=== PATIENT | female | born 1995 | race Two or more races ===

== ENCOUNTER 2020-06-20 21:29 | Emergency (ER) | payer MEDICAID ==
[~2020-06-20] VITALS: Ht 165.1 cm; Wt 166.8 kg
[2020-06-20 21:41] VITALS: BP 155/92
[2020-06-20] MEDS ORDERED: ondansetron 4mg rapidly disintigrating tab PO ONE (23:25)
[2020-06-20] MEDS ORDERED: HYDROcodone/acetaminophen 5mg/325mg tablet PO ONE (23:25)
[2020-06-20] MEDS ORDERED: amox tr/potassium clavulanate 875/125mg TAB PO ONE (23:25)
[2020-06-20] MEDS ORDERED: ONDA4TAB6 PO (23:27)
[2020-06-20] MEDS ORDERED: HYDR-3965 PO (23:27)
[2020-06-20] MEDS ORDERED: AMOX-117 PO (23:27)
== END 2020-06-20 23:54 | disposition home or self-care (01) ==
LOC: ER 21:30
DX: K04.7 Periapical abscess without sinus (principal); K08.89 Other specified disorders of teeth and supporting structures; R50.9 Fever, unspecified; Z88.1 Allergy status to other antibiotic agents; Z79.2 Long term (current) use of antibiotics; Z79.899 Other long term (current) drug therapy
CPT/HCPCS: 99284

== ENCOUNTER 2020-07-17 22:30 | Emergency (ER) | payer MEDICAID ==
[~2020-07-17] VITALS: Ht 165.1 cm; Wt 165.4 kg
[~2020-07-17 22:30] MED LIST: ONDA4TAB6 PO
[2020-07-17 22:38] VITALS: BP 151/87
[2020-07-18] MEDS ORDERED: ketorolac trometh. 30mg/ml inj. IV ONE (00:35)
[2020-07-18] MEDS ORDERED: HYDR-3964 PO (01:47)
[2020-07-18] MEDS ORDERED: ONDA4TAB6 PO (01:47)
== END 2020-07-18 02:33 | disposition home or self-care (01) ==
LOC: ER 22:31
DX: M54.5 Low back pain (principal); M53.3 Sacrococcygeal disorders, not elsewhere classified; Z79.2 Long term (current) use of antibiotics; Z79.899 Other long term (current) drug therapy
CPT/HCPCS: 72131; 72192; 96374; 99285; J1885

== ENCOUNTER 2020-10-28 00:36 | Emergency (ER) | payer MEDICAID ==
[~2020-10-28] VITALS: Ht 165.1 cm; Wt 163.6 kg
[2020-10-28 01:14] VITALS: BP 154/97
[2020-10-28] MEDS ORDERED: ALBU18HF2 INH (02:34)
[2020-10-28] MEDS ORDERED: PRED20TA PO (02:34)
[2020-10-28] MEDS ORDERED: DOXY100C43 PO (02:34)
== END 2020-10-28 03:44 | disposition home or self-care (01) ==
LOC: ER 00:36
DX: J20.9 Acute bronchitis, unspecified (principal); Z20.822 Contact with and (suspected) exposure to COVID-19; J45.909 Unspecified asthma, uncomplicated; Z88.1 Allergy status to other antibiotic agents; Z79.899 Other long term (current) drug therapy; Z72.89 Other problems related to lifestyle
CPT/HCPCS: 87635; 99283; C9803

== ENCOUNTER 2021-01-22 19:26 | Emergency (ER) | payer MEDICAID ==
[~2021-01-22] VITALS: Ht 165.1 cm; Wt 154.3 kg
[~2021-01-22 19:26] MED LIST changes: +ALBU18HF2 INH
[2021-01-22] MEDS ORDERED: NAPR-56 PO (21:45)
[2021-01-22] MEDS ORDERED: PENI250T2 PO (21:45)
[2021-01-22] MEDS ORDERED: HYDR-3965 PO (21:45)
[2021-01-22 22:13] VITALS: BP 120/65
== END 2021-01-22 22:14 | disposition home or self-care (01) ==
LOC: ER 19:27
DX: K08.89 Other specified disorders of teeth and supporting structures (principal); K02.9 Dental caries, unspecified; Z88.2 Allergy status to sulfonamides; Z79.2 Long term (current) use of antibiotics; Z79.899 Other long term (current) drug therapy
CPT/HCPCS: 99283

== ENCOUNTER 2021-02-07 12:33 | Emergency (ER) | payer MEDICAID ==
[~2021-02-07] VITALS: Ht 165.1 cm; Wt 172.7 kg
[~2021-02-07 12:33] MED LIST changes: +HYDR-3965 PO; +NAPR-56 PO
[2021-02-07 12:46] VITALS: BP 166/105
[2021-02-07 13:43] LABS: BASOPHILS % (AUTO) 0.5 % (0-1); EOSINOPHILS # (AUTO) 0.1 X10'3 (0-0.9); EOSINOPHILS % (AUTO) 0.7 % (0-6); HEMATOCRIT 40.5 % (35.0-45.0); HEMOGLOBIN 13.7 g/dl (12.0-16.0); LYMPHOCYTES % (AUTO) 10.4 % (21-51); MEAN CORPUSCULAR HEMOGLOBIN 30.9 PG (27.0-31.0); MEAN CORPUSCULAR VOLUME 90.9 FL (78-98); MEAN PLATELET VOLUME 8.5 FL (7.4-10.4); MONOCYTES # (AUTO) 0.2 X10'3 (0-0.9); MONOCYTES % (AUTO) 2.4 % (2-12); NEUTROPHILS # (AUTO) 8.2 X10'3 (1.8-7.7); PLATELET COUNT 212 X10'3 (140-440); RED BLOOD COUNT 4.45 X10'6 (4.20-5.60); RED CELL DISTRIBUTION WIDTH 14.9 % (11.5-14.5); WHITE BLOOD COUNT 9.5 X10'3 (4.5-11.0)
[2021-02-07 13:56] LABS: ALANINE AMINOTRANSFERASE 48 U/L (12-78); ALBUMIN 3.8 G/DL (3.4-5.0); ALBUMIN/GLOBULIN RATIO 0.9 (1.1-1.5); ALKALINE PHOSPHATASE 67 IU/L (46-116); ANION GAP 9 (8-16); ASPARTATE AMINO TRANSFERASE 20 U/L (10-37); BILIRUBIN,TOTAL 0.3 MG/DL (0.1-1.0); BLOOD UREA NITROGEN 11 MG/DL (7-18); BUN/CREATININE RATIO 13.4 (6.6-38.0); CALCIUM 8.9 MG/DL (8.5-10.1); CHLORIDE 103 MMOL/L (99-107); CREATININE 0.82 MG/DL (0.40-0.90); GLUCOSE 122 MG/DL (70-104); POTASSIUM 4.3 MMOL/L (3.5-5.1); SODIUM 140 MMOL/L (135-145); TOTAL PROTEIN 8.1 G/DL (6.4-8.2); eGFR 84 ML/MIN
[2021-02-07] MEDS ORDERED: PRED20TA PO (14:18)
[2021-02-07] MEDS ORDERED: BENZ-38 PO (14:18)
[2021-02-07] MEDS ORDERED: AMOX-117 PO (14:18)
[2021-02-07] MEDS ORDERED: ALBU6.7H9 INH (14:36)
== END 2021-02-07 14:37 | disposition home or self-care (01) ==
LOC: ER 12:34
DX: J20.9 Acute bronchitis, unspecified (principal); Z20.822 Contact with and (suspected) exposure to COVID-19; R50.9 Fever, unspecified; R53.1 Weakness; R06.02 Shortness of breath; R05.9 Cough, unspecified; E66.01 Morbid (severe) obesity due to excess calories; J45.909 Unspecified asthma, uncomplicated; F17.200 Nicotine dependence, unspecified, uncomplicated; Z88.1 Allergy status to other antibiotic agents; Z79.2 Long term (current) use of antibiotics; Z79.899 Other long term (current) drug therapy
CPT/HCPCS: 36415; 71045; 80053; 85025; 87635; 99284; C9803

== ENCOUNTER 2021-03-25 15:26 | Emergency (ER) | payer MEDICAID ==
[~2021-03-25] VITALS: Ht 165.1 cm; Wt 185.4 kg
[~2021-03-25 15:26] MED LIST changes: +ALBU6.7H9 INH; -HYDR-3965 PO; -NAPR-56 PO
[2021-03-25 15:46] VITALS: BP 142/95
[2021-03-25] MEDS ORDERED: OXYC-481 PO ×2 (16:01→16:08)
[2021-03-25] MEDS ORDERED: OXYC5CAP19 PO (16:05)
[2021-03-25] MEDS ORDERED: OXYC-658 PO (16:14)
== END 2021-03-25 16:36 | disposition home or self-care (01) ==
LOC: ER 15:27
DX: K08.89 Other specified disorders of teeth and supporting structures (principal); H92.03 Otalgia, bilateral; R53.83 Other fatigue; J45.909 Unspecified asthma, uncomplicated; Z88.1 Allergy status to other antibiotic agents; Z79.899 Other long term (current) drug therapy
CPT/HCPCS: 99283

== ENCOUNTER 2021-05-18 17:00 | Emergency (ER) | payer MEDICAID ==
[~2021-05-18] VITALS: Ht 165.1 cm; Wt 181.8 kg
[2021-05-18] MEDS ORDERED: PENI500T2 PO ×3 (17:27→18:09)
[2021-05-18 17:30] VITALS: BP 149/92
== END 2021-05-18 18:27 | disposition home or self-care (01) ==
LOC: ER 17:01
DX: K08.89 Other specified disorders of teeth and supporting structures (principal); J45.909 Unspecified asthma, uncomplicated; Z79.2 Long term (current) use of antibiotics; Z79.899 Other long term (current) drug therapy; Z88.1 Allergy status to other antibiotic agents; Z98.818 Other dental procedure status
CPT/HCPCS: 99283

== ENCOUNTER 2021-06-18 11:26 | Emergency (ER) | payer MEDICAID ==
[~2021-06-18] VITALS: Ht 165.1 cm; Wt 181.8 kg
[~2021-06-18 11:26] MED LIST changes: +PENI500T2 PO
[2021-06-18] MEDS ORDERED: AMOX-117 PO ×2 (13:26)
[2021-06-18] MEDS ORDERED: ALBU8HFA PO (13:27)
[2021-06-18] MEDS ORDERED: dexamethasone sod phosphate 10mg/ml inj PO STA (14:08)
[2021-06-18 14:31] VITALS: BP 160/98
[2021-06-18] MEDS ORDERED: AMOX-101 PO (16:43)
== END 2021-06-18 14:32 | disposition home or self-care (01) ==
LOC: ER 11:26
DX: J02.0 Streptococcal pharyngitis (principal); R07.89 Other chest pain; E66.01 Morbid (severe) obesity due to excess calories; F17.210 Nicotine dependence, cigarettes, uncomplicated; J45.909 Unspecified asthma, uncomplicated; Z88.1 Allergy status to other antibiotic agents; Z79.2 Long term (current) use of antibiotics; Z79.899 Other long term (current) drug therapy; Z68.44 Body mass index [BMI] 60.0-69.9, adult
CPT/HCPCS: 71045; 87880; 99284; J1100

== ENCOUNTER 2021-08-10 15:56 | Emergency (ER) | payer MEDICAID ==
[~2021-08-10] VITALS: Ht 165.1 cm; Wt 172.0 kg
[2021-08-10] MEDS ORDERED: acetaminophen 325mg tablet PO STA (16:12)
[2021-08-10] MEDS: normal saline 1000ML IV soln IV ONE ×2 (16:15→17:47)
[2021-08-10] MEDS ORDERED: ipratropium/albuterol 3ml nebule NEB ONE (16:15)
[2021-08-10 16:44] LABS: BASOPHILS % (AUTO) 0.3 % (0-1); EOSINOPHILS % (AUTO) 0.1 % (0-6); HEMATOCRIT 42.8 % (35.0-45.0); HEMOGLOBIN 14.1 g/dl (12.0-16.0); LYMPHOCYTES # (AUTO) 0.7 X10'3 (1.1-4.8); LYMPHOCYTES % (AUTO) 6.2 % (21-51); MEAN CORPUSCULAR HEMOGLOBIN 29.3 PG (27.0-31.0); MEAN CORPUSCULAR HGB CONC 32.9 g/dL (33.0-36.5); MEAN CORPUSCULAR VOLUME 89.1 FL (78-98); MONOCYTES # (AUTO) 0.6 X10'3 (0-0.9); MONOCYTES % (AUTO) 5.4 % (2-12); PLATELET COUNT 227 X10'3 (140-440); RED BLOOD COUNT 4.81 X10'6 (4.20-5.60); WHITE BLOOD COUNT 11.4 X10'3 (4.5-11.0)
[2021-08-10 17:03] LABS: ALANINE AMINOTRANSFERASE 58 U/L (12-78); ALBUMIN 3.9 G/DL (3.4-5.0); ALBUMIN/GLOBULIN RATIO 0.9 (1.1-1.5); ALKALINE PHOSPHATASE 72 IU/L (46-116); ANION GAP 9 (8-16); ASPARTATE AMINO TRANSFERASE 29 U/L (10-37); BILIRUBIN,TOTAL 0.5 MG/DL (0.1-1.0); BLOOD UREA NITROGEN 13 MG/DL (7-18); BUN/CREATININE RATIO 12.1 (6.6-38.0); CALCIUM 9.3 MG/DL (8.5-10.1); CHLORIDE 101 MMOL/L (99-107); CREATININE 1.07 MG/DL (0.40-0.90); GLUCOSE 101 MG/DL (70-104); POTASSIUM 4.2 MMOL/L (3.5-5.1); SODIUM 136 MMOL/L (135-145); TOTAL CARBON DIOXIDE 26.2 MMOL/L (24-32); TOTAL PROTEIN 8.3 G/DL (6.4-8.2); eGFR 61 ML/MIN
[2021-08-10 17:48] VITALS: BP 127/70
[2021-08-10] MEDS ORDERED: albuterol 2.5 MG/3 ML nebule NEB ONE (18:55)
[2021-08-10] MEDS ORDERED: LORazepam 1 MG tablet PO ONE (18:55)
[2021-08-10] MEDS ORDERED: predniSONE 20 mg tablet PO ONE (18:55)
[2021-08-10] MEDS ORDERED: PRED20TA PO (18:58)
[2021-08-10] MEDS ORDERED: AZIT250T2 PO (18:58)
[2021-08-10] MEDS ORDERED: ALBU6.7H9 INH (18:58)
[2021-08-10] MEDS ORDERED: TAM75C PO (18:58)
== END 2021-08-10 19:39 | disposition home or self-care (01) ==
LOC: ER 15:57
DX: J10.1 Influenza due to other identified influenza virus with other respiratory manifestations (principal); J45.901 Unspecified asthma with (acute) exacerbation; Z20.822 Contact with and (suspected) exposure to COVID-19; Z88.1 Allergy status to other antibiotic agents; Z79.899 Other long term (current) drug therapy
CPT/HCPCS: 36415; 71045; 80053; 83605; 84145; 85025; 87040; 87502; 87503; 87635; 94640; 99285; C9803; J7030; J7512; 94760; A4615

== ENCOUNTER 2021-10-04 14:23 | Outpatient (CLI) | payer MEDICAID ==
[~2021-10-04] VITALS: Ht 165.1 cm; Wt 178.7 kg
[2021-10-04 14:46] LABS: TOTAL HEMOGLOBIN 15.2 G/dl (12.0-16.0)
[2021-10-04] MEDS ORDERED: albuterol 2.5 MG/3 ML nebule NEB PRN (15:15)
== END 2021-10-04 23:59 | disposition home or self-care (01) ==
LOC: RT 14:23
PROVIDERS: ATTEND Nurse Practitioner Family
DX: R94.2 Abnormal results of pulmonary function studies (principal); J45.998 Other asthma; J98.4 Other disorders of lung
CPT/HCPCS: 85018; 94060; 94727; 94729; 94760

== ENCOUNTER 2021-10-05 22:42 | Emergency (ER) | payer MEDICAID ==
[~2021-10-05] VITALS: Ht 165.1 cm; Wt 179.1 kg
[2021-10-06] MEDS ORDERED: ALBU8HFA PO ×2 (05:37→05:50)
[2021-10-06 05:57] VITALS: BP 145/67
== END 2021-10-06 05:58 | disposition home or self-care (01) ==
LOC: ER 22:42
DX: S93.402A Sprain of unspecified ligament of left ankle, initial encounter (principal); J45.909 Unspecified asthma, uncomplicated; Z88.1 Allergy status to other antibiotic agents; Z79.899 Other long term (current) drug therapy; Z79.2 Long term (current) use of antibiotics; X50.1XXA Overexertion from prolonged static or awkward postures, initial encounter; Y93.89 Activity, other specified; Y92.512 Supermarket, store or market as the place of occurrence of the external cause; Y99.8 Other external cause status
CPT/HCPCS: 73610; 99284

== ENCOUNTER 2022-01-24 13:54 | Emergency (ER) | payer MEDICAID ==
[~2022-01-24] VITALS: Ht 165.1 cm; Wt 177.3 kg
[~2022-01-24 13:54] MED LIST changes: +ALBU6.7H14 INH; -ALBU6.7H9 INH
[2022-01-24 14:08] VITALS: BP 142/92
[2022-01-24] MEDS ORDERED: BENZ-38 PO ×2 (17:11→17:39)
[2022-01-24] MEDS ORDERED: METH4TAB81 PO ×2 (17:11→17:39)
[2022-01-24] MEDS ORDERED: AMOX-117 PO (17:11)
[2022-01-24] MEDS ORDERED: AMOX-580 PO (17:39)
[2022-01-24] MEDS ORDERED: ALBU8HFA PO (17:39)
== END 2022-01-24 17:40 | disposition home or self-care (01) ==
LOC: ER 13:55
DX: J45.998 Other asthma (principal); Z88.1 Allergy status to other antibiotic agents; Z79.899 Other long term (current) drug therapy
CPT/HCPCS: 99283